=== PATIENT | female | born 1955 | race Caucasian/White ===

== ENCOUNTER 2016-03-17 06:44 | Emergency (ER) | payer OTHER ==
[2016-03-17 07:00] VITALS: BMI 28.3
[2016-03-17] MEDS ORDERED: KETOROLAC TROMETHAMINE 30 MG/1 ML VIAL IVPUSH ONE (07:32)
[2016-03-17] MEDS ORDERED: SODIUM CHLORIDE 1,000 ML IV STA (07:32)
--- NOTE | 2016-03-17 07:33 | PDOC ---
History of Present Illness - General Chief Complaint: Pain, Acute Stated Complaint: PAIN RT SIDE Time Seen by Provider: 03/17/16 07:17 History Source: Patient - History of Present Illness Initial Comments: 03/17/16 07:34 Ms. Sexton is a 60 y/o post-menopausal female with a PHM of HTN, presenting to the ED this morning complaining of right-sided abdomnial pain x1 day. She states the pain started late 03/15/16. She describes the pain as "cramping and warm". At its worse the pain is an 8/10, when the pain subsides, its a 5/10. Her current pain level is a 5/10. The pain radiates around her R flank and to her back. She has associated dysuria, frequency, nausea and vomiting with her pain. She has never experienced this kind of pain before. She ate dinner last night and is drinking fluids. GENERAL/CONSTITUTIONAL: No fever or chills. No weakness. No weight change. HEAD, EYES, EARS, NOSE AND THROAT: No change in vision. No ear pain or discharge. No sore throat. CARDIOVASCULAR: No chest pain or palpitations. RESPIRATORY: No cough, wheezing, or shortness of breath. GASTROINTESTINAL: (+) nausea, vomiting R-sided flank pain, (-) diarrhea or constipation. GENITOURINARY: (+) dysuria, frequency, or change in urination. MUSCULOSKELETAL: No joint or muscle swelling or pain. No neck or back pain. SKIN: No rash or easy bruising. NEUROLOGIC: No headache, vertigo, loss of consciousness, or loss of sensation. PSYCHIATRIC: No depression or anxiety. ENDOCRINE: No increased thirst. No abnormal weight change. HEMATOLOGIC/LYMPHATIC: No anemia, easy bleeding, or history of blood clots. ALLERGIC/IMMUNOLOGIC: No hives or skin allergy. No latex allergy. Past History - Past Medical History Allergies/Adverse Reactions: Allergies Allergy/AdvReac Type Severity Reaction Status Date / Time No Known Drug Allergies Allergy Verified 03/17/16 06:56 Home Medications: Ambulatory Orders Amlodipine Besylate/Benazepril [Lotrel 5-10 mg Capsule] 1 tab PO DAILY 03/09/13 Hydrocodone/Ibuprofen [Reprexain 5-200 mg Tablet] 1 each PO BID PRN #10 tablet MDD 5 03/17/16 Ibuprofen 800 mg PO BID PRN #30 tablet 03/17/16 Levofloxacin [Levaquin -] 500 mg PO DAILY #6 tablet 03/17/16 Tamsulosin HCl [Flomax] 0.4 mg PO DAILY #7 cap.er.24h 03/17/16 Anemia: Yes ( A TEENAGER) Asthma: No Cancer: No Cardiac Disorders: No CVA: No COPD: No CHF: No Dementia: No Diabetes: No GI Disorders: Yes (H/O COLON POLYP,REDUNDANT COLON) Disorders: No HTN: Yes Hypercholesterolemia: No Liver Disease: No Seizures: No Thyroid Disease: No - Surgical History Abdominal Surgery: Yes (UMBILICAL HERNIA REPAIR) Appendectomy: No Cardiac Surgery: No Cholecystectomy: No Lung Surgery: No Neurologic Surgery: No Orthopedic Surgery: Yes (ARTHROSCOPY KNEE -LEFT) - Psycho/Social/Smoking Cessation Hx Suicidal Ideation: No Smoking History: Never smoked Have you smoked in the past 12 months: No Hx Alcohol Use: No Drug/Substance Use Hx: No Substance Use Type: None Hx Substance Use Treatment: No *Physical Exam - Vital Signs Last Vital Signs Temp Pulse Resp BP Pulse Ox 98.3 F 75 18 148/96 97 03/17/16 06:58 03/17/16 06:58 03/17/16 06:58 03/17/16 06:58 03/17/16 06:58 - Physical Exam Comments: 03/17/16 07:45 GENERAL: The patient is awake, alert, and fully oriented, in no acute distress. Pt. is sitting in exam bed breathing easily. HEAD: Normal with no signs of trauma. ENT: Pupils equal, round and reactive to light, extraocular movements intact, sclera anicteric, conjunctiva clear. Neck supple. LUNGS: Clear to auscultation bilaterally. Normal excursion. No respiratory distress or use of accessory muscles. CV: RRR, S1/S2, no MRG. Cap refill < 2 sec. ABDOMEN: (+) RLQ, R Flank tenderness. (+) R sided CVA tenderness (-) rebound tenderness, guarding. Soft, non-distended, (+) bowel sounds x4 quadrants EXTREMITIES: Normal range of motion, no edema. NEUROLOGICAL: Normal speech, normal gait. CN II-XII grossly intact. PSYCH: Normal mood, normal affect. SKIN: Warm, dry, normal turgor, no rashes or lesions noted ED Treatment Course - LABORATORY CBC & Chemistry Diagram: 03/17/16 07:34 03/17/16 07:34 Medical Decision Making - Medical Decision Making 03/17/16 07:48 Ms. Sexton is a 60 post-menopausal woman with a PMH of HTN presenting to the ED with R sided abdominal pain times one day. Given her history and physical exam, kidney stones seem most probable. Since this is her first presentation of possible kidney stones will obtain CT scan. Also possible include UTI. Less likely to be pylonephritis or appendicitis given lack of constitutional symptoms and exam findings. Will draw labs to r/o infection. CBC, CMP, Lipase, UA to evaluate for infections CT-non contrast to evaluate for stones or appendicitis Will start fluids and give toradol for pain. Will re-evaluate 03/17/16 07:53 Pt. was able to give a urine sample. It appears the patient has passed two stones. Pt. to go to CT for further evaluation, possible she still has stones. 03/17/16 08:54 CT scan back no definite current obstructing calculus is seen. Note is again made of several 1 mm non-obstructing renal calculi. There is no longer visualization of a 4 mm right renal calculus which may be on the basis of interval passage versus fragmentation. No perirenal soft tissue edema is seen. There is no obvious al soft tissue edema allowing for a relative paucity of retroperitoneal fat. No definite urinary bladder calculus is visualized Development of a 2 mm non-obstructing L renal calculi seen. The liver spleen pancreas gallbladder adrenal glands demonstrate no discrete non -contrast abnormality there is no aortic aneurysm no gross lymphadenopathy. No obvious CT evidence of acute diverticulitis or appendicitis. 03/17/16 09:06 CBC, CMP, Lipase WNL. UA shows nitrates and leukocytes. Will also treat for UTI. Patient is feeling better at the time after pain medication and fluids. Will discharge home. *DC/Admit/Observation/Transfer Diagnosis at time of Disposition: Kidney stones UTI (urinary tract infection) Qualifiers: Urinary tract infection type: acute cystitis Hematuria presence: with hematuria Qualified Code(s): N30.01 - Acute cystitis with hematuria - Discharge Dispostion Disposition: HOME Admit: No - Patient Instructions Printed Discharge Instructions: Kidney Stones -- Adult Additional Instructions: You have kidney stones and a urinary tract infection. Drink plenty of water to help facilitate stone passage. Your blood work today showed no acute infection, and your urine showed bacteria. You are given medication for both symptomatic treatment of the stones and an antibiotic for the urinary tract infection. Follow up with a urologist for stone analysis within one week. You were given your stones that you passed in the ED. If you experience increasing pain despite proper medication, fevers or are unable to urinate, return to ED. - Post Discharge Activity Work/School Note: Back to Work
[2016-03-17] MEDS ORDERED: KETOROLAC TROMETHAMINE 30 MG/1 ML VIAL ONE (07:48)
[2016-03-17 08:11] LABS: BASOPHIL 0.5 % (0-2.0); EOSINOPHIL 0.3 % (0-4.5); MCH 30.8 pg (25.7-33.7); MCHC 33.2 g/dl (32.0-36.0); MEAN CELL VOLUME 92.8 fl (80-96); MEAN PLT VOLUME 8.6 fl (7.5-11.1); NEUTROPHILS 83.8 % (42.8-82.8); PLATELET COUNT 289 K/MM3 (134-434); RDW 15.7 % (11.6-15.6); WHITE BLOOD COUNT 10.6 K/mm3 (4.0-10.0)
[2016-03-17 08:13] LABS: URINE APPEARANCE SLCLOUDY; URINE BILIRUBIN NEGATIVE (NEGATIVE); URINE COLOR YELLOW; URINE GLUCOSE (UA) NEGATIVE (NEGATIVE); URINE KETONE NEGATIVE (NEGATIVE); URINE NITRITE POSITIVE (NEGATIVE); URINE PROTEIN NEGATIVE (NEGATIVE); URINE UROBILINOGEN NEGATIVE E.U./dl (0.2-1.0)
[2016-03-17 08:42] LABS: ALBUMIN 4.2 g/dl (3.4-5.0); ANION GAP 11 (8-16); BILIRUBIN,TOTAL 0.4 mg/dL (0.2-1.0); CO2 26 mmol/L (21-32); CREATININE 0.9 mg/dL (0.55-1.02); GLUCOSE,RANDOM 96 mg/dL (74-106); SGOT/AST 15 U/L (15-37); SGPT/ALT 19 U/L (12-78); TOT PROT 7.9 g/dl (6.4-8.2)
[2016-03-17 08:43] LABS: ALK PHOS 94 U/L (45-117)
[2016-03-17 08:44] LABS: URINE BLOOD 3+ (NEGATIVE); URINE LEUK ESTERASE 1+ (NEGATIVE)
[2016-03-17] MEDS ORDERED: LEVOFLOXACIN 500 MG TABLET (FP) PO ONE (09:27)
[2016-03-17] MEDS ORDERED: LEVOFLOXACIN 500 MG TABLET (FP) ONE (09:35)
[2016-03-17 09:36] LABS: URINE RBC 28 /hpf (0-3)
[2016-03-17 09:37] LABS: URINE BACTERIA MAMY /hpf (NONE SEEN); URINE HYALINE CAST 1 /lpf; URINE MUCUS FEW; URINE WBC 24 /hpf (3-5)
[2016-03-17 09:38] VITALS: BP 134/77; PULSE 70; TEMP 98.2
--- NOTE | 2016-03-17 10:42 | PDOC ---
*Physical Exam - Vital Signs Last Vital Signs Temp Pulse Resp BP Pulse Ox 98.2 F 70 19 134/77 97 03/17/16 09:37 03/17/16 09:37 03/17/16 09:37 03/17/16 09:37 03/17/16 09:37 ED Treatment Course - LABORATORY CBC & Chemistry Diagram: 03/17/16 07:34 03/17/16 07:34 - ADDITIONAL ORDERS Additional order review: Laboratory Results 03/17/16 03/17/16 03/17/16 07:34 07:34 07:34 Sodium 140 Potassium 3.6 Chloride 103 Carbon Dioxide 26 Anion Gap 11 BUN 14 D Creatinine 0.9 Creat Clearance w eGFR > 60 Random Glucose 96 Calcium 9.0 Total Bilirubin 0.4 D AST 15 D ALT 19 Alkaline Phosphatase 94 Total Protein 7.9 Albumin 4.2 Lipase 104 Urine Color Yellow Urine Appearance Slcloudy Urine pH 6.0 Ur Specific Nutrioso 1.010 Urine Protein Negative Urine Glucose (UA) Negative Urine Ketones Negative Urine Blood 3+ H Urine Nitrite Positive Urine Bilirubin Negative Urine Urobilinogen Negative Ur Leukocyte Esterase 1+ H Urine RBC 28 Urine WBC 24 Ur Epithelial Cells Few Urine Bacteria Mamy Hyaline Casts 1 Urine Mucus Few 03/17/16 07:34 RBC 4.38 MCV 92.8 MCHC 33.2 RDW 15.7 H MPV 8.6 Neutrophils % 83.8 H D Lymphocytes % 9.0 D Monocytes % 6.4 Eosinophils % 0.3 D Basophils % 0.5 - Medications Given in the ED: ED Medications Discontinued Medications Generic Name Dose Route Start Last Admin Trade Name Freq PRN Reason Stop Dose Admin Sodium Chloride 1,000 mls @ 1,000 mls/hr 03/17/16 07:32 03/17/16 07:48 Normal Saline - IV 03/17/16 08:31 1,000 mls/hr ASDIR STA Administration Ketorolac Tromethamine 30 mg 03/17/16 07:32 03/17/16 07:48 Toradol Injection - IVPUSH 03/17/16 07:33 30 mg ONCE ONE Administration Levofloxacin 500 mg 03/17/16 09:27 03/17/16 09:35 Levaquin - PO 03/17/16 09:28 500 mg ONCE ONE Administration Medical Decision Making - Medical Decision Making 03/17/16 10:41 Pt called requesting rx resent to new pharmacy *DC/Admit/Observation/Transfer Diagnosis at time of Disposition: Kidney stones UTI (urinary tract infection) Qualifiers: Urinary tract infection type: acute cystitis Hematuria presence: with hematuria Qualified Code(s): N30.01 - Acute cystitis with hematuria - Prescriptions Prescriptions: Tamsulosin HCl [Flomax] 0.4 mg PO DAILY #7 cap.er.24h Hydrocodone/Ibuprofen [Hydrocodone-Ibuprofen 7.5-200] 1 each PO Q6H #10 tablet MDD 4 Ibuprofen 800 mg PO BID PRN #30 tablet PRN Reason: Pain Levofloxacin [Levaquin -] 500 mg PO DAILY #6 tablet - Referrals Referrals: Claus Asif MD [Primary Care Provider] - - Patient Instructions Printed Discharge Instructions: Kidney Stones -- Adult Additional Instructions: You have kidney stones and a urinary tract infection. Drink plenty of water to help facilitate stone passage. Your blood work today showed no acute infection, and your urine showed bacteria. You are given medication for both symptomatic treatment of the stones and an antibiotic for the urinary tract infection. Follow up with a urologist for stone analysis within one week. You were given your stones that you passed in the ED. If you experience increasing pain despite proper medication, fevers or are unable to urinate, return to ED. - Post Discharge Activity Work/School Note: Back to Work
== END 2016-03-17 09:47 | disposition home or self-care (01) ==
LOC: JER 06:44
PROC: 3E0333Z Introduction of Anti-inflammatory into Peripheral Vein, Percutaneous Approach (ICD-10-PCS; principal; 2016-03-17)
DX: N20.0 Calculus of kidney (principal); N30.01 Acute cystitis with hematuria; I10 Essential (primary) hypertension
CPT/HCPCS: 36415; 74176; 80053; 81003; 81015; 83690; 85025; 87086; 87186; 99284-25